=== PATIENT | male | born 1970 | race Caucasian/White ===

== ENCOUNTER 2020-01-31 16:23 | Emergency (ER) | payer OTHER, SELFPAY ==
[2020-01-31 16:34] VITALS: BP 139/91; PULSE 86; RESP 17; TEMP 36.7; O2SAT 97; BMI 30.6
--- NOTE | 2020-01-31 16:42 | DI.RAD.S_ITS ---
PROCEDURE: XR CHEST 2V INDICATIONS: shortness of breath TECHNIQUE: 2 views of the chest were acquired. COMPARISON: None. FINDINGS: Surgical changes and devices: None. Lungs and pleura: Low lung volumes are noted. This causes a crowded appearance to the lung markings and limits evaluation. Apparent minimal, patchy infiltrates are seen within the lungs. No pneumothorax or pleural effusions are seen. Mediastinum: Mediastinal contours are normal. Heart size is normal. Bones and chest wall: No suspicious bony abnormalities. Age-appropriate bony degenerative changes are seen. Soft tissues appear unremarkable. IMPRESSION: Low lung volumes, with apparent patchy minimal infiltrates. Please correlate with infectious symptoms. Differential diagnosis includes artifact from the low lung volumes. If clinically appropriate, a short-term followup chest series (with PA and lateral views) performed in deep inspiration is suggested for further evaluation. Dictated by: Isaiah Gaston M.D. on 01/31/2020 at 16:22 Approved by: Isaiah Gaston M.D. on 01/31/2020 at 16:23
[2020-01-31] MEDS: SODIUM CHLORIDE 0.9% 1,000 ML 1000 ML IV (17:14)
--- NOTE | 2020-01-31 17:16 | DI.RAD.S_ITS ---
PROCEDURE: XR ANKLE LT MIN 3V INDICATIONS: ankle pain TECHNIQUE: 3 views of the ankle were acquired. COMPARISON: [facility], CR, XR CHEST 2V, 01/31/2020, 17:02. FINDINGS: Bones: No fractures or dislocations. Ankle mortise is normally aligned. No suspicious bony lesions. The talar dome demonstrates no sherrell abnormality. Soft tissues: No tibiotalar joint effusion. Achilles tendon appears normal. IMPRESSION: Unremarkable ankle plain films. Dictated by: Isaiah Gaston M.D. on 01/31/2020 at 16:35 Approved by: Isaiah Gaston M.D. on 01/31/2020 at 16:36
[2020-01-31 17:17] LABS: Alanine Aminotransferase 137 IU/L (<50); Albumin 4.7 g/dL (3.5-5.0); Albumin Globulin Ratio 1.7 (1.0-2.8); Alkaline Phosphatase 73 U/L (38-126); Aspartate Aminotransferase 93 IU/L (17-59); BUN Creatinine Ratio 14.7 (6-22); Bilirubin Total 1.1 mg/dL (0.2-1.3); Blood Urea Nitrogen 16 mg/dL (9-20); Calcium 9.8 mg/dL (8.4-10.2); Carbon Dioxide 26 mmol/L (22-32); Chloride 103 mmol/L (98-107); Creatine Kinase 58 U/L (55-170); Estimated Glomerular Filt Rate > 60.0 mL/min (>60); Globulin 2.7 g/dL (1.7-4.1); Glucose 165 mg/dL (70-100); HEMOLYSIS < 15 (0-50); Potassium 3.9 mmol/L (3.4-5.1); Sodium 136 mmol/L (137-145); Total Protein 7.4 g/dL (6.3-8.2)
[2020-01-31 17:27] LABS: Add Manual Diff / Slide Review NO; Basophils Absolute Auto 0 /uL (0-100); Basophils Percent Auto 0.4 % (0-2); Eosinophils Absolute Auto 100 /uL (0-450); Eosinophils Percent Auto 0.8 % (2-4); Hematocrit 45.2 % (41-53); Hemoglobin 15.5 g/dL (13.5-17.5); INR 1.1 (0.9-1.3); Lymphocytes Absolute Auto 1300 /uL (1100-4500); Lymphocytes Percent Auto 14.4 % (25-40); Mean Corpuscular HGB Conc 34.2 % (30-36); Mean Corpuscular Hemoglobin 31.4 PG (26-34); Mean Corpuscular Volume 91.9 fL (80-100); Monocytes Absolute Auto 700 /uL (0-900); Monocytes Percent Auto 7.4 % (3-14); Neutrophils Absolute Auto 7100 /uL (1500-7000); Platelet Count 149 X10^3/uL (150-400); Prothrombin Time 12.1 SECONDS (10.1-12.7); Red Blood Cell Count 4.92 X10^6/uL (4.5-5.9); Red Cell Distribution Width 13.5 % (11.6-14.8); White Blood Cell Count 9.2 X10^3/uL (4.5-11.0)
[2020-01-31 17:29] LABS: Troponin I < 0.012 ng/mL (0.01-0.034)
[2020-01-31 17:46] LABS: Bacteria Urine None Seen; WBC Urine None Seen (0-5/HPF)
--- NOTE | 2020-01-31 17:47 | PC.NURSE ---
Patient reports before he passed out he began having pain to scalp/top of head and he thought he got stung or bit by something. When he came to after his loss of consciousness his scalp was throbbing and it is still throbbing. I can see what looks like a small red raised spot on scalp that could be a pimple or a sting/bite. No stinger noted.
[2020-01-31 18:01] VITALS: BP 148/89; PULSE 78; RESP 16; O2SAT 98
--- NOTE | 2020-01-31 18:01 | ED_ITS ---
HPI - Syncope General Chief Complaint: Syncope Stated Complaint: passed out, injured knee and ankle Time Seen by Provider: 01/31/20 18:00 Source: patient and family Mode of arrival: Wheelchair History of Present Illness HPI narrative: 49-year-old male daily smoker with history of ADHD presents after a witnessed syncopal episode this afternoon. He has been traveling and admittedly overdoing it lately. He hadn't eaten breakfast or had any water yet and was feeling flushed. He then became lightheaded and developed tunnel vision at which point he had a syncopal episode and rapidly woke. This was witnessed by his daughter. She states the episode lasted approximately 1 minute at which point he awoke and was conversive. He states that he injured his left knee. He denies any head, neck or back pain. He denies any chest pain or shortness of breath. He has not been ill recently and denies any new medications. MD complaint: loss of consciousness Onset (ago): hour(s) -: second(s) Prodromal symptoms: lightheaded Witnessed: yes - by bystander Injuries sustained associated with event: LLE Current symptoms: none Related Data Home Medications Medication Instructions Recorded Confirmed dextroamphetamine-amphetamine 10 mg PO PRN 01/31/20 Allergies Allergy/AdvReac Type Severity Reaction Status Date / Time No Known Drug Allergies Allergy Verified 01/31/20 16:41 Review of Systems Constitutional Constitutional: Denies chills, Denies fatigue, Denies fever(s), Denies frequent falls, Denies lethargy and Denies weakness Eyes Eyes: Denies change in vision, Denies eye discharge, Denies irritation and Ariel es loss of vision ENT Ears, Nose, Mouth, and Throat: Denies change in voice, Denies dizziness, Denies neck pain, Denies sore throat and Denies throat swelling Cardiovascular Cardiovascular: Denies chest pain, Reports syncope, Denies irregular heart rhythm, Reports lightheadedness, Denies palpitations, Denies dyspnea, Denies dyspnea on exertion and Denies orthopnea Respiratory Respiratory: Denies cough, Denies dyspnea, Denies dyspnea on exertion and Denies wheezing Gastrointestinal Gastrointestinal: Denies abdominal pain, Denies change in bowel habits, Denies diarrhea, Denies nausea and Denies vomiting Musculoskeletal Musculoskeletal: Reports arthralgias, Reports joint swelling, Denies neck pain and Denies numbness Integumentary/Breasts Skin/Breast: Denies pruritus, Denies erythema, Denies rash and Denies wounds Neurologic Neurologic: Denies behavioral changes, Denies confusion, Denies dizziness, Reports syncope, Denies frequent falls, Denies loss of vision, Denies numbness and Denies weakness Psychiatric Psychiatric: Denies anxiety, Denies behavioral changes, Denies confusion, Denies depression, Denies homicidal ideation and Denies suicidal ideation Endocrine Endocrine: Denies fatigue, Denies flushing and Denies palpitations Hematologic/Lymphatic Hematologic/Lymphatic: Denies easy bruising Allergic/Immunologic Allergic/Immunologic: Denies urticaria, Denies throat swelling and Denies wheezing Patient History Social History Smoking Status: Current every day smoker Smoking Status: Current every day smoker tobacco type: cigars alcohol intake frequency: 0-2 drinks per day Alcohol type: hard liquor Substance Use Type: does not use Exam Narrative Exam Narrative: GENERAL: [50] year old patient appears stated age. Well- nourished, well-developed patient, in mild distress. HEAD: Atraumatic. Normocephalic. EYES: Pupils equal round and reactive. Extraocular motions intact. No scleral icterus. No injection or drainage. ENT: Nose without bleeding, purulent drainage. Throat without erythema, tonsillar hypertrophy or exudate. Airway patent. NECK: Trachea midline. Non tender CARDIOVASCULAR: Regular rate and rhythm without murmurs, gallops, or rubs. RESPIRATORY: Clear to auscultation. Breath sounds equal bilaterally. No wheezes, rales, or rhonchi. GASTROINTESTINAL: Abdomen soft, non-tender, nondistended. EXTREMITIES: Full but painful range of motion of left knee. Very minimal effusion, joint laxity. Mild swelling of left ankle BACK: Nontender without deformity or crepitance. No flank tenderness. NEURO: AOx3. SKIN: No rash or erythema of visible areas Initial Vital Signs Initial Vital Signs: Vital Signs Temperature 98.1 F 01/31/20 16:34 Pulse Rate 86 01/31/20 16:34 Respiratory Rate 17 01/31/20 16:34 Blood Pressure 139/91 H 01/31/20 16:34 Pulse Oximetry 97 01/31/20 16:34 Scores PERC Score Age greater than or equal to 50 years: Yes Heart rate greater than or equal to 100 bpm: No Room Air O2 Sat less than 95%: No Unilateral leg swelling: No Recent trauma or surgery: No Hemoptysis: No Prior PE or DVT: No Hormone Use: No Total PERC Score: 1 Wells' Criteria for PE Clinical signs and symptoms of DVT: No PE is #1 Dx or equally likely: No Heart rate > 100: No Immobilization at least 3 days or surg in previous 4 weeks: No History of PE or DVT: No Hemoptysis: No Malignancy w/Treatment within 6 months or palliative: No Wells' PE Score total: 0 Course Orders Ordered: Discontinued Medications Sodium Chloride (Normal Saline 0.9%) 1,000 mls @ 1,000 mls/hr IV BOLUS ONE Stop: 01/31/20 17:57 Last Infusion: 01/31/20 18:26 Dose: 0 mls/hr Documented by: Admin: 01/31/20 17:14 Dose: 1,000 mls/hr Documented by: OZZIE Vital Signs Vital signs: Vital Signs - 8 hr 01/31/20 16:34 01/31/20 18:01 01/31/20 18:22 Temperature 98.1 F Pulse Rate 86 78 75 Respiratory Rate 17 16 22 Blood Pressure 139/91 H 148/89 H Pulse Oximetry 97 98 98 01/31/20 18:23 Temperature Pulse Rate 75 Respiratory Rate 16 Blood Pressure 156/83 H Pulse Oximetry 98 MDM - Syncope Lab Data Result diagrams: 01/31/20 16:55 01/31/20 16:55 Labs: Lab Results 01/31/20 01/31/20 01/31/20 Range/Units 16:40 16:55 16:55 WBC 9.2 (4.5-11.0) X10^3/uL RBC 4.92 (4.5-5.9) X10^6/uL Hgb 15.5 (13.5-17.5) g/dL Hct 45.2 (41-53) % MCV 91.9 (80-100) fL MCH 31.4 (26-34) PG MCHC 34.2 (30-36) % RDW 13.5 (11.6-14.8) % Plt Count 149 L (150-400) X10^3/uL Neut % (Auto) 77.0 H (50-75) % Lymph % (Auto) 14.4 L (25-40) % [place] % (Auto) 7.4 (3-14) % Eos % (Auto) 0.8 L (2-4) % Baso % (Auto) 0.4 (0-2) % Neut # (Auto) 7100 H (8428-9387) /uL Lymph # (Auto) 1300 (4005-6710) /uL [place] # (Auto) 700 (0-900) /uL Eos # (Auto) 100 (0-450) /uL Baso # (Auto) 0 (0-100) /uL PT 12.1 (10.1-12.7) SECONDS INR 1.1 (0.9-1.3) Sodium (137-145) mmol/L Potassium (3.4-5.1) mmol/L Chloride (98-107) mmol/L Carbon Dioxide (22-32) mmol/L BUN (9-20) mg/dL Creatinine (0.66-1.25) mg/dL Estimated GFR (>60) mL/min BUN/Creatinine Ratio (6-22) Glucose (70-100) mg/dL Calcium (8.4-10.2) mg/dL Total Bilirubin (0.2-1.3) mg/dL AST (17-59) IU/L ALT (<50) IU/L Alkaline Phosphatase (38-126) U/L Total Creatine Kinase (55-170) U/L CK-MB (CK-2) CK-MB (CK-2) Rel Index Troponin I (0.01-0.034) ng/mL Total Protein (6.3-8.2) g/dL Albumin (3.5-5.0) g/dL Globulin (1.7-4.1) g/dL Albumin/Globulin Ratio (1.0-2.8) Urine RBC 1-5/hpf (0-5/HPF) Urine WBC None seen (0-5/HPF) Amorphous Sediment 1+ Urine Bacteria None seen (None) Ur Culture Indicated? Cult not indicated 01/31/20 Range/Units 16:55 WBC (4.5-11.0) X10^3/uL RBC (4.5-5.9) X10^6/uL Hgb (13.5-17.5) g/dL Hct (41-53) % MCV (80-100) fL MCH (26-34) PG MCHC (30-36) % RDW (11.6-14.8) % Plt Count (150-400) X10^3/uL Neut % (Auto) (50-75) % Lymph % (Auto) (25-40) % [place] % (Auto) (3-14) % Eos % (Auto) (2-4) % Baso % (Auto) (0-2) % Neut # (Auto) (7827-0957) /uL Lymph # (Auto) (2768-6175) /uL [place] # (Auto) (0-900) /uL Eos # (Auto) (0-450) /uL Baso # (Auto) (0-100) /uL PT (10.1-12.7) SECONDS INR (0.9-1.3) Sodium 136 L (137-145) mmol/L Potassium 3.9 (3.4-5.1) mmol/L Chloride 103 (98-107) mmol/L Carbon Dioxide 26 (22-32) mmol/L BUN 16 (9-20) mg/dL Creatinine 1.09 (0.66-1.25) mg/dL Estimated GFR > 60.0 (>60) mL/min BUN/Creatinine Ratio 14.7 (6-22) Glucose 165 H (70-100) mg/dL Calcium 9.8 (8.4-10.2) mg/dL Total Bilirubin 1.1 (0.2-1.3) mg/dL AST 93 H (17-59) IU/L ALT 137 H (<50) IU/L Alkaline Phosphatase 73 (38-126) U/L Total Creatine Kinase 58 (55-170) U/L CK-MB (CK-2) TNP CK-MB (CK-2) Rel Index TNP Troponin I < 0.012 (0.01-0.034) ng/mL Total Protein 7.4 (6.3-8.2) g/dL Albumin 4.7 (3.5-5.0) g/dL Globulin 2.7 (1.7-4.1) g/dL Albumin/Globulin Ratio 1.7 (1.0-2.8) Urine RBC (0-5/HPF) Urine WBC (0-5/HPF) Amorphous Sediment Urine Bacteria (None) Ur Culture Indicated? Urine Dip Bedside Urine Glucose Negative Bedside Urine Bilirubin - Negative Bedside Urine Ketone - Negative Urine Specific [place] 1.015 Bedside Urine Occult Blood + Bedside Urine pH 6.0 Bedside Urine Protein - Negative Bedside Urine Urobilinogen - Negative Bedside Urine Nitrite - Negative Bedside Urine Leukocytes - Negative Esterase Imaging Data Extremity x-ray #1: Radiologist's Impression: Stephen Mohan 49 M [address] [address] XRay Report Signed Patient: Stephen MohanMR#: [id number] : 1970Acct:[id number] Age/Sex: 49 / MDate of Service: 01/31/20 Loc: ED Accession Number: [id number] Procedure: XR ankle LT min 3V Ordering Provider: Carol Aburto D.O. PROCEDURE: XR ANKLE LT MIN 3V INDICATIONS: ankle pain TECHNIQUE: 3 views of the ankle were acquired. COMPARISON: [facility], CR, XR CHEST 2V, 01/31/2020, 17:02. FINDINGS: Bones: No fractures or dislocations. Ankle mortise is normally aligned. No suspicious bony lesions. The talar dome demonstrates no sherrell abnormality. Soft tissues: No tibiotalar joint effusion. Achilles tendon appears normal. IMPRESSION: Unremarkable ankle plain films. Dictated by: Isaiah Gaston M.D. on 01/31/2020 at 16:35 Approved by: Isaiah Gaston M.D. on 01/31/2020 at 16:36 [facility] Narrative Medical decision making narrative: Multiple etiologies for patient's symptoms considered including: [Dehydration versus orthostasis versus arrhythmia versus over exertion versus other] Patient's symptoms improved over duration of stay with above-stated therapies. Findings and discharge diagnosis discussed with patient/family followed by verbalization of understanding Return precautions discussed with patient/family whom verbalize understanding. Discharge Plan Departure Patient Disposition: Home Clinical Impression: Syncope due to orthostatic hypotension Left knee sprain Qualifiers: Encounter type: initial encounter Involved ligament of knee: unspecified ligament Qualified Code(s): S83.92XA - Sprain of unspecified site of left knee, initial encounter Ankle sprain Qualifiers: Encounter type: initial encounter Involved ligament of ankle: unspecified ligament Laterality: left Qualified Code(s): S93.402A - Sprain of unspecified ligament of left ankle, initial encounter Discharge Date/Time: 01/31/20 19:14 Instructions: DI for Syncope in Adults (Fainting) Activity Restrictions/Additional Instructions: *You have been diagnosed with [ syncope with minor associated injuries ] *What to do: *Take medications as directed: tylenol or motrin for pain. Drink plenty of fluids, get plenty of rest, eat regularly. *Follow up with your primary care provider in 2-3 days, call for an appointment. Let them know you were seen in the Emergency Department and that we ask that you be seen in follow up *Return to ER if you should have any new, worsening or concerning symptoms, such as [chest pain, shortness of breath, recurrence of syncope, or other b othersome symptoms ] Prescriptions: No Action dextroamphetamine-amphetamine 10 mg tablet 10 mg PO PRN (Reason: ADD symptoms) RF: 0
[2020-01-31 18:18] LABS: Amorphous Sediment Urine 1+; Culture Indicated Urine Cult Not Indicated; RBC Urine 1-5/HPF (0-5/HPF)
[2020-01-31 18:22] VITALS: PULSE 75; RESP 22; O2SAT 98
[2020-01-31 18:23] VITALS: BP 156/83; PULSE 75; RESP 16; O2SAT 98
[2020-01-31 18:30] VITALS: BP 151/89; PULSE 79; O2SAT 98
== END 2020-01-31 19:14 | disposition home or self-care (01) ==
PROVIDERS: Emergency Medicine; Emergency Provider Emergency Medicine
DX: I95.1 Orthostatic hypotension (principal); S83.92XA Sprain of unspecified site of left knee, initial encounter; S93.402A Sprain of unspecified ligament of left ankle, initial encounter
CPT/HCPCS: 36415; 71046; 73610; 80053; 81003; 81015; 82550; 84484; 85025; 85610; 93005; 93010; 96360; 99284